=== PATIENT | male | born 1930 | race Caucasian/White ===

== ENCOUNTER 2017-11-17 14:50 | Inpatient (IN) | payer MEDICARE ==
[~2017-11-17] VITALS: Ht 170.2 cm; Wt 54.8 kg
[2017-11-17 15:35] LABS: Source, Urine Catheter
[2017-11-17 15:46] LABS: Hematocrit 28.9 % (37.0-53.0); Mean Corpuscular HGB 27.2 pg (26.0-34.0); Mean Corpuscular HGB Conc 31.1 g/dL (31.5-36.5); Mean Corpuscular Volume 87 fL (80-100); Platelet Count 305 K/mm3 (150-400); RDW Coefficient Variation 17.2 % (11.7-14.2); RDW Standard Deviation 54.2 fL (35.1-46.3); Red Blood Cell Count 3.31 M/mm3 (4.30-5.90); White Blood Cell Count 4.04 K/mm3 (4.00-11.30)
[2017-11-17 15:48] LABS: Appearance, Urine Hazy (Clear); Bilirubin, Urine Neg (Neg); Blood, Urine 2+ (Neg); Color, Urine Yellow (P-Yellow); Glucose Qualitative, Urine 3+ (Neg); Ketones, Urine 3+ (Neg); Leukocyte Esterase, Urine 3+ (Neg); Nitrite, Urine Neg (Neg); Protein, Urine 1+ (Neg); Urobilinogen, Urine NORM (Normal)
[2017-11-17] MEDS ORDERED: FINA5 PO (15:54)
[2017-11-17] MEDS ORDERED: HYDCOR20 PO (15:54)
[2017-11-17] MEDS ORDERED: LEVSOD50 PO (15:55)
[2017-11-17] MEDS ORDERED: TERA5 PO ×2 (15:55→23:11)
[2017-11-17] MEDS ORDERED: OMEPRAZOLE MAGN20 MG PO (15:55)
[2017-11-17] MEDS ORDERED: TRAZ50 PO (15:56)
[2017-11-17] MEDS ORDERED: TRIA15CR3 TOP (15:56)
[2017-11-17] MEDS ORDERED: TAMS.4ER PO (15:57)
[2017-11-17 16:00] LABS: International Normalized Ratio 1.02; Prothrombin Time Results 10.6 Sec (9.7-11.5)
[2017-11-17 16:08] LABS: Alanine Aminotransfer (ALT/SGP 14 U/L (12-78); Albumin, Blood 2.8 g/dL (3.4-5.0); Albumin/Globulin Ratio 0.9 (0.8-1.8); Alk Phos 132 U/L (50-136); Anion Gap 14 mmol/L (6-16); Aspartate Aminotrans (AST/SGOT 38 U/L (12-37); Bilirubin, Total 0.4 mg/dL (0.1-1.0); Blood Urea Nitrogen 6 mg/dL (8-24); Bun/Creatinine Ratio 13.7 (12.0-20.0); CO2, Blood 18 mmol/L (21-32); Calcium, Blood 7.4 mg/dL (8.5-10.1); Chloride, Blood 95 mmol/L (98-108); Creatinine, Blood 0.44 mg/dL (0.60-1.20); Ethanol (Alcohol), Blood, Med 129 mg/dL; Glomerular Filtration Rate >60 (60-); Glucose, Blood 117 mg/dL (70-99); Potassium, Blood 3.8 mmol/L (3.5-5.5); Sodium, Blood 127 mmol/L (136-145); Total Protein, Blood 5.8 g/dL (6.4-8.2)
[2017-11-17 16:12] LABS: White Blood Cells, Urine 50-100 /hpf (0-5)
[2017-11-17 16:13] LABS: Bacteria Mod /hpf; Squamous Epithelial Cells Rare /hpf (Few)
[2017-11-17 16:27] LABS: BASOPHILS ABSOLUTE MAN 0.04 K/mm3 (0.00-0.23); BASOPHILS PERCENT MAN 1 % (0-2); EOSINOPHILS ABSOLUTE MAN 0.12 K/mm3 (0.00-0.68); EOSINOPHILS PERCENT MAN 3 % (0-6); LYMPHOCYTES ABSOLUTE MAN 0.36 K/mm3 (0.84-5.20); LYMPHOCYTES PERCENT MAN 9 % (21-46); MONOCYTES ABSOLUTE MAN 0.12 K/mm3 (0.16-1.47); MONOCYTES PERCENT MAN 3 % (4-13); MYELOCYTE ABSOLUTE MAN 0.04 K/mm3 (0.00-0.00); MYELOCYTE PERCENT MAN 1 % (0-0); NEUTROPHILS ABSOLUTE MAN 3.35 K/mm3 (1.96-9.15); SEG NEUTROPHILS PERCENT MAN 83 % (41-73); TOTAL CELLS COUNTED 100
[2017-11-17] MEDS ORDERED: CALCIUM WITH V1 EACH PO (22:57)
[2017-11-17] MEDS ORDERED: ACET325 PO (22:57)
[2017-11-17] MEDS ORDERED: CYAN500 PO (22:58)
[2017-11-17] MEDS ORDERED: FERROUS SULFATE PO (23:00)
[2017-11-17] MEDS ORDERED: Hair, Skin & N1 EACH PO (23:00)
[2017-11-17] MEDS ORDERED: IBUP400 PO (23:00)
[2017-11-17] MEDS ORDERED: Vitamin B Comple1 EA PO (23:01)
[2017-11-17] MEDS ORDERED: SENN187 PO (23:01)
[2017-11-17] MEDS ORDERED: ERYT1OIN RIGHTEYE (23:09)
[2017-11-18 06:30] LABS: BASOPHILS ABSOLUTE AUTO 0.02 K/mm3 (0.00-0.23); BASOPHILS PERCENT AUTO 0 % (0-2); EOSINOPHILS ABSOLUTE AUTO 0.36 K/mm3 (0.00-0.68); EOSINOPHILS PERCENT AUTO 7 % (0-6); Hematocrit 29.4 % (37.0-53.0); Hemoglobin 9.5 g/dL (13.5-17.5); IMMATURE GRAN ABSOLUTE AUTO 0.02 K/mm3 (0.00-0.10); IMMATURE GRAN PERCENT AUTO 0 % (0-1); LYMPHOCYTES ABSOLUTE AUTO 0.39 K/mm3 (0.84-5.20); LYMPHOCYTES PERCENT AUTO 7 % (21-46); MONOCYTES ABSOLUTE AUTO 0.47 K/mm3 (0.16-1.47); MONOCYTES PERCENT AUTO 9 % (4-13); Mean Corpuscular HGB 27.4 pg (26.0-34.0); Mean Corpuscular HGB Conc 32.3 g/dL (31.5-36.5); Mean Corpuscular Volume 85 fL (80-100); Mean Platelet Volume 9.1 fL (9.1-12.4); NEUTROPHILS PERCENT AUTO 77 % (41-73); Platelet Count 357 K/mm3 (150-400); RDW Standard Deviation 51.6 fL (35.1-46.3); Red Blood Cell Count 3.47 M/mm3 (4.30-5.90); White Blood Cell Count 5.46 K/mm3 (4.00-11.30)
[2017-11-18 06:58] LABS: Anion Gap 11 mmol/L (6-16); Blood Urea Nitrogen 4 mg/dL (8-24); Bun/Creatinine Ratio 10.1 (12.0-20.0); CO2, Blood 23 mmol/L (21-32); Calcium, Blood 7.3 mg/dL (8.5-10.1); Chloride, Blood 94 mmol/L (98-108); Glomerular Filtration Rate >60 (60-); Glucose, Blood 74 mg/dL (70-99); Potassium, Blood 3.6 mmol/L (3.5-5.5); Sodium, Blood 128 mmol/L (136-145)
[2017-11-18 07:01] LABS: Thyroid Stimulating Hormone 0.206 uIU/mL (0.360-4.800)
[2017-11-18 07:06] LABS: Percent Saturation 15.5 % (20.0-50.0)
[2017-11-19 05:32] LABS: Hematocrit 28.1 % (37.0-53.0); Mean Corpuscular HGB 27.2 pg (26.0-34.0); Mean Corpuscular Volume 85 fL (80-100); Mean Platelet Volume 8.5 fL (9.1-12.4); Platelet Count 313 K/mm3 (150-400); RDW Coefficient Variation 17.1 % (11.7-14.2); RDW Standard Deviation 52.7 fL (35.1-46.3); Red Blood Cell Count 3.31 M/mm3 (4.30-5.90); White Blood Cell Count 4.61 K/mm3 (4.00-11.30)
[2017-11-19 05:56] LABS: Anion Gap 8 mmol/L (6-16); Blood Urea Nitrogen 3 mg/dL (8-24); Bun/Creatinine Ratio 6.1 (12.0-20.0); CO2, Blood 24 mmol/L (21-32); Calcium, Blood 7.9 mg/dL (8.5-10.1); Chloride, Blood 95 mmol/L (98-108); Glomerular Filtration Rate >60 (60-); Glucose, Blood 101 mg/dL (70-99); Potassium, Blood 3.7 mmol/L (3.5-5.5); Sodium, Blood 127 mmol/L (136-145)
[2017-11-20 05:46] LABS: Hematocrit 30.2 % (37.0-53.0); Hemoglobin 9.6 g/dL (13.5-17.5); Mean Corpuscular HGB 27.2 pg (26.0-34.0); Mean Corpuscular HGB Conc 31.8 g/dL (31.5-36.5); Mean Corpuscular Volume 86 fL (80-100); Mean Platelet Volume 9.2 fL (9.1-12.4); Platelet Count 340 K/mm3 (150-400); RDW Coefficient Variation 17.6 % (11.7-14.2); RDW Standard Deviation 53.9 fL (35.1-46.3); Red Blood Cell Count 3.53 M/mm3 (4.30-5.90); White Blood Cell Count 3.75 K/mm3 (4.00-11.30)
[2017-11-20 06:03] LABS: Anion Gap 6 mmol/L (6-16); Blood Urea Nitrogen 5 mg/dL (8-24); Bun/Creatinine Ratio 9.4 (12.0-20.0); CO2, Blood 27 mmol/L (21-32); Calcium, Blood 8.2 mg/dL (8.5-10.1); Chloride, Blood 98 mmol/L (98-108); Creatinine, Blood 0.53 mg/dL (0.60-1.20); Glomerular Filtration Rate >60 (60-); Glucose, Blood 76 mg/dL (70-99); Sodium, Blood 131 mmol/L (136-145)
[2017-11-21 05:58] LABS: Anion Gap 7 mmol/L (6-16); Blood Urea Nitrogen 7 mg/dL (8-24); Bun/Creatinine Ratio 12.1 (12.0-20.0); CO2, Blood 25 mmol/L (21-32); Calcium, Blood 8.3 mg/dL (8.5-10.1); Chloride, Blood 97 mmol/L (98-108); Creatinine, Blood 0.58 mg/dL (0.60-1.20); Glomerular Filtration Rate >60 (60-); Glucose, Blood 76 mg/dL (70-99); Sodium, Blood 129 mmol/L (136-145)
[2017-11-21 06:17] LABS: Beta-hydroxybutyrate 1.6 mg/dL (0.2-2.8)
[2017-11-22 07:14] LABS: C-PEPTIDE, SERUM 0.6 ng/mL (1.1-4.4)
[2017-11-22] MEDS ORDERED: CIPR250 PO (14:48)
[2017-11-25 01:09] LABS: FREE INSULIN <1.0 uU/mL (.); TOTAL INSULIN <1.0 uU/mL (.)
== END 2017-11-22 15:53 | disposition home health service (06) | DRG 698 ==
LOC: ER 14:50 → MEDS 17:37
PROVIDERS: Internal Medicine; Nurse Practitioner Family
DX: T83.518A Infection and inflammatory reaction due to other urinary catheter, initial encounter (principal); A41.51 Sepsis due to Escherichia coli [E. coli]; G92 Toxic encephalopathy; A41.81 Sepsis due to Enterococcus; R65.20 Severe sepsis without septic shock; E87.1 Hypo-osmolality and hyponatremia; N39.0 Urinary tract infection, site not specified; E27.40 Unspecified adrenocortical insufficiency; R00.1 Bradycardia, unspecified; I67.9 Cerebrovascular disease, unspecified; E16.2 Hypoglycemia, unspecified; C44.310 Basal cell carcinoma of skin of unspecified parts of face; Z85.01 Personal history of malignant neoplasm of esophagus; K21.9 Gastro-esophageal reflux disease without esophagitis; N40.1 Benign prostatic hyperplasia with lower urinary tract symptoms; R33.8 Other retention of urine; Z98.890 Other specified postprocedural states; E03.9 Hypothyroidism, unspecified; Z79.899 Other long term (current) drug therapy; Y84.8 Other medical procedures as the cause of abnormal reaction of the patient, or of later complication, without mention of misadventure at the time of the procedure
CPT/HCPCS: 36415; 70450; 71046; 80048; 80053; 81001; 82010; 82728; 82947; 83525; 83527; 83540; 83550; 83605; 84145; 84443; 84681; 85025; 85027; 85610; 87040; 87077; 87086; 87186; 93005; 93010; 96361; 96365; 96375; 99285; G0480; J0696; J1956; J7030; J7042; J7120

== ENCOUNTER → 2018-06-11 | Outpatient (CLI) | payer MEDICARE ==
[~2018-06-11] MED LIST: ACET325 PO; CALCIUM WITH V1 EACH PO; CIPR250 PO; CYAN500 PO; ERYT1OIN RIGHTEYE; FERROUS SULFATE PO; FINA5 PO; HYDCOR20 PO; Hair, Skin & N1 EACH PO; IBUP400 PO; LEVSOD50 PO; OMEPRAZOLE MAGN20 MG PO; SENN187 PO; TAMS.4ER PO; TERA5 PO; TRAZ50 PO; TRIA15CR3 TOP; Vitamin B Comple1 EA PO
== END | disposition home or self-care (01) ==
LOC: LAB SHORT 13:00 → LAB 13:00
DX: L08.9 Local infection of the skin and subcutaneous tissue, unspecified (principal); L89.153 Pressure ulcer of sacral region, stage 3
CPT/HCPCS: 87070; 87075; 87205

== ENCOUNTER 2018-11-20 14:32 | Observation (INO) | payer MEDICARE ==
[~2018-11-20] VITALS: Ht 170.2 cm; Wt 45.4 kg
[2018-11-20 15:18] LABS: BASOPHILS ABSOLUTE AUTO 0.05 K/mm3 (0.00-0.23); BASOPHILS PERCENT AUTO 0 % (0-2); EOSINOPHILS ABSOLUTE AUTO 1.44 K/mm3 (0.00-0.68); EOSINOPHILS PERCENT AUTO 13 % (0-6); Hematocrit 42.4 % (37.0-53.0); Hemoglobin 13.1 g/dL (13.5-17.5); IMMATURE GRAN ABSOLUTE AUTO 0.05 K/mm3 (0.00-0.10); IMMATURE GRAN PERCENT AUTO 0 % (0-1); LYMPHOCYTES ABSOLUTE AUTO 0.68 K/mm3 (0.84-5.20); LYMPHOCYTES PERCENT AUTO 6 % (21-46); MONOCYTES ABSOLUTE AUTO 0.77 K/mm3 (0.16-1.47); MONOCYTES PERCENT AUTO 7 % (4-13); Mean Corpuscular HGB 31.6 pg (26.0-34.0); Mean Corpuscular HGB Conc 30.9 g/dL (31.5-36.5); Mean Corpuscular Volume 102 fL (80-100); NEUTROPHILS ABSOLUTE AUTO 8.36 K/mm3 (1.96-9.15); NEUTROPHILS PERCENT AUTO 74 % (41-73); Platelet Count 277 K/mm3 (150-400); RDW Coefficient Variation 15.1 % (11.7-14.2); Red Blood Cell Count 4.15 M/mm3 (4.30-5.90); White Blood Cell Count 11.35 K/mm3 (4.00-11.30)
[2018-11-20 15:49] LABS: Alanine Aminotransfer (ALT/SGP 12 U/L (12-78); Albumin, Blood 3.1 g/dL (3.4-5.0); Alk Phos 81 U/L (50-136); Anion Gap 10 mmol/L (6-16); Aspartate Aminotrans (AST/SGOT 22 U/L (12-37); Bilirubin, Total 1.1 mg/dL (0.1-1.0); Blood Urea Nitrogen 29 mg/dL (8-24); Bun/Creatinine Ratio 25.2 (12.0-20.0); CO2, Blood 25 mmol/L (21-32); Calcium, Blood 8.2 mg/dL (8.5-10.1); Chloride, Blood 109 mmol/L (98-108); Creatinine, Blood 1.15 mg/dL (0.60-1.20); Glomerular Filtration Rate >60 (60-); Glucose, Blood 19 mg/dL (70-99); Potassium, Blood 3.9 mmol/L (3.5-5.5); Sodium, Blood 144 mmol/L (136-145); Total Protein, Blood 6.1 g/dL (6.4-8.2)
--- NOTE | 2018-11-20 17:11 | NUR ---
PT ADMITTED PT ADMITTED AT 1700. PT APPEARS COMFORTABLE. WILL CONTINUE TO MONITOR.
--- NOTE | 2018-11-20 17:31 | NUR ---
NEXT OF KIN NOTIFIED THIS RN NOTIFIED NEXT OF KIN, TRINH ABOUT PT HOPITALIZATION & CONDITION. TRINH STATED SHE IS CURRENTLY IN [place] & WILL CALL FOR UPDATES. [facility] & THIS RN REQUESTED TO HAVE A FACE SHEET & ADVANCED DIRECTED SENT OVER TO [facility].
--- NOTE | 2018-11-20 18:52 | NUR ---
Spoke to Dr. Cheng and to Dr. Sparks regarding this patient. Dr. Sparks will admit for comfort care, IV fluids will be stopped. Pt appears to be comfortable at this time. Notes indicate that NOK was notified of admission. Palliative to follow comfort pt.
--- NOTE | 2018-11-20 21:58 | NUR ---
11/20/182199 ORAL CARE GIVEN AND SUCTIONED SECRETIONS. REPOSITIONED TO LEFT SIDE WITH PILLOWS. COMFORTABLE FOR NOW. RESP 22.
--- NOTE | 2018-11-21 03:55 | NUR ---
11/21/18 0400 SLEEPING COMFORTABLY. RESP. EQUAL AND UNLABORED AT 20. ORAL CARE GIVEN WITH SUCTION SWAB KIT. PT BITES DOWN AND UNABLE TO CLEAN ALL OF MOUTH AND TEETH. REPOSITIONED TO OTHER SIDE. CALHOUN PATENT WITH SMALL AMT YELLOW URINE.
--- NOTE | 2018-11-21 07:21 | NUR ---
11/21/18 0600 RESP. AT 24,UNLABORED. HR= 84, REGULAR. ORAL AND DEBRA-CARE GIVEN. FIANCEE/FRIEND, TRINH WILL BE DRIVING DOWN THIS AM WITH HER DAUGHTER TO VISIT WITH PT. REFER TO COMFORT CARE SECTION. SILVA ALEMAN BM THIS SHIFT.
--- NOTE | 2018-11-21 12:59 | NUR ---
Spiritual care visit conducted. Patient is lying in bed and patient's RN tells me he is actively dying. Patient is non responsive. I tell patient who I am and what department I am from. I tell patient that I do not know what spiritual background that he has but I will say a prayer for him. Patient does not respond to questions or statements. I provide a generic prayer hoping that what I pray fit the topics on his mind and fit a belief system the patient ascribes to. Patient shows no change in facial expression. I will continue to remain available to patient and family.
--- NOTE | 2018-11-22 03:52 | NUR ---
SHIFT SUMMARY: PT IS MOSTLY UNRESPONSIVE. FAMILY AT THE BEDSIDE DURING SHIFT CHANGE. PT TURNED Q2H. CALHOUN PATENT AND DRAINING YELLOW URINE. PT KEPT ON BEDREST AND COMFORT MEASURES ORDERED. PT SHOWS NO S/S FOR PAIN, NAUSEA, VOMITING, OR SOB. NO ACUTE CHANGES OR COMPLICATIONS THIS SHIFT. WILL REPORT TO DAY NURSE AND CONTINUE TO MONITOR.
--- NOTE | 2018-11-22 07:43 | NUR ---
REPOSITIONED & CHECKED ATTENDS-DRY. UNIQUE OH PATENT DRNAHOMY DRK YELLOW URINE. PT STARES, DOES NOT MAKE EYE CONTACT OR REPOND WHEN SPOKEN TO. NO S/S PAIN. HE APPEARS GAUNT/FRAIL, FATIGUED, VERY LETHARGIC. SKIN SOMEWHAT CLAMMY. COOL WASH TOWEL TO FACE. WILL CONTINUE TO MX & PROVIDE COMFORT CARE.
--- NOTE | 2018-11-22 10:22 | NUR ---
complete bedbath & attends change. pt incont of stool. he continues nonresponsive with eyes open. no s/s pain. repositioned for comfort. no family in room @ this time respirations are becoming shallow, 20-24/min, non labored. will continue to mx & provide comfort care.
--- NOTE | 2018-11-22 10:31 | NUR ---
CLEANED ROOM, GAVE PATIENT SPONGE BATH, AND LINEN CHANGE.
--- NOTE | 2018-11-22 13:14 | NUR ---
spoke with Evy the daughter of pt's s/o & updated on pt's condition @ this time.
--- NOTE | 2018-11-22 15:33 | NUR ---
PT'S S/O TRINH & FRIEND LANEY IN TO VISIT, ATTEMPT TO COMMUNICATE WITH PT HOWEVER PT NONRESPONSIVE. THEY STATE HE HAD CAR KEYS & POSSIBLY LR[facility] AMOUNT OF MATTHEWS IN POCKETS ($2000) WHEN BROUGHT TO HOSP BY EMS. NO RECEIPTS FOR VALUABLES ON CHART. NO PERSONAL BELONGINGS IN ROOM. BUSINESS SYSTEMS ADVISOR REPORT TO PT ADVOCATE WHO WILL INVESTIGATE.
--- NOTE | 2018-11-22 17:17 | NUR ---
PT OCCASIONALLY WIGGLES FEET, OCCASIONALLY GASPS/MOANS. MINOR SYMPTOMS OF DISCOMFORT. ROXANOL 5MG GIVEN X 2 TODAY. FAMILY STATED HE APPEAR COMFORTABLE WHILE THEY WERE IN ROOM. PASTORAL CARE SAT WITH PT TODAY PROVIDING COMFORT TO PT & VISITORS. ORAL CARE PROVIDED INTERMITTANTLY T/O DAY. COMFORT CARE CONTINUES. PT CONTINUES NONRESPONSIVE WITH SHALLOW UNLABORED RESPIRATIONS.
--- NOTE | 2018-11-22 17:48 | NUR ---
Per RN request, I sat with Mr. Laurent who appeared very close to end-of-life. He was alone in room and non-responsive. Held his hand and spoke softly to him. Told him he was deeply loved and thanked him for his contribution to the world. Breaths very shallow, hands and feet mottled. He did not respond to me but would wiggle his foot randomly. He did not appear to be in pain or distress thanks to excellent nursing care. His "fiance" Charlene arrived with a friend. They placed a hearing device on Julio's ears and began speaking to him loudly into a speaker. They began to ask Julio about his finances as they needed to pay for his cremation and burial. I tried to gently explain to them that Julio was non-responsive and very close to end-of-life. I suggested that maybe they could focus on speaking to him about happy memories and their love for him. They were politely dismissive of this suggestion. I was called away at this point, but will remain available.
--- NOTE | 2018-11-22 18:09 | NUR ---
CALHOUN OUTPUT 150ML
--- NOTE | 2018-11-22 19:39 | NUR ---
PT RESTING COMFORTABLY, NO S/S OF PAIN OR DISCOMFORT. ORAL CARE PERFORMED, APPLIED LOTION TO ARMS. RR IS 22. PT NON-VERBAL, HOWEVER DOES BITE DOWN ON TOOTHETE WHEN PERFORMING ORAL CARE & OCCASIONALLY WIGGLES TOES. PT COOL TO TOUCH, BLANKET PROVIDED. WILL CONTINUE TO MONITOR PT.
--- NOTE | 2018-11-23 01:16 | NUR ---
CHANGE IN RESPIRATIONS PT HAVING NICK STOKE RESPIRATIONS W/6-10 SEC PERIODS OF APNEA. CHECKED & REPOSITIONED, RESTING COMFORTABLY. WILL CONTINUE TO MONITOR.
--- NOTE | 2018-11-23 06:42 | NUR ---
SHIFT SUMMARY NO S/S OF PAIN/DISCOMFORT, NAUSEA OR INCREASED BODY TEMP THIS SHIFT. PT APPEARS COMFORTABLE, TURNED & REPOSITIONED Q2H PRN. CALHOUN IS PATENT & DRAINING ODOROUS DARK ORANGE URINE, HAD 150ML OUTPUT. RR IS AROUND 12/MIN W/OCCASIONAL PERIODS OF APNEA THROUGH THE NIGHT. ORAL CARE PERFORMED & CALL LIGHT IN REACH. WILL CONTINUE TO MONITOR PT.
--- NOTE | 2018-11-23 06:46 | NUR ---
PHONE CALL FROM [facility] AT 0640 I RECIEVED PHONE CALL FROM [facility], HER NAME IS SUHAIL WATERMAN. SHE IS A FRIEND THAT LIVES IN [facility], STATES SHE BELIEVES PT POSSIBLY WANTED TO BE CREMATED & WAS GOING TO LOOK INTO IT & CALL TRINH HIS FIANCE. ASKED US TO CALL IF ANYTHING HAPPENS TO PT, NUMBER IS [phone].
--- NOTE | 2018-11-23 07:57 | NUR ---
COMFORT CARE CONTINUES. PT IS NONRESPONSIVE, EYES PARTIALLY OPEN. BREATHING SHALLOW, R/R APPROX 16/MIN, NONLABORED @ THIS TIME. NO S/S PAIN. CALHOUN CATH PATENT JOSE ANTONIO OWUSU YELLOW URINE. ATTENDS CDI. PT POSITIONED FOR COMFORT. VISITOR IN [place] TO SEE PT, GIVEN UPDATE.
--- NOTE | 2018-11-23 09:22 | NUR ---
PRN ROXANOL 5MG GIVEN FOR COMFORT/PAIN RELIEF, FACE SCALE 4. DR SALAS IN TO SEE PT. RESP INCREASINGLY SHALLOW, 16-20/MIN W OCCASIONAL PAUSES.
--- NOTE | 2018-11-23 12:51 | NUR ---
ORAL CARE PROVIDED. PT CONTINUES NONRESPONSIVE, STIFF/RIGID. RESP VERY SHALLOW, APPROX 16.
--- NOTE | 2018-11-23 14:17 | NUR ---
NO S/S PAIN. PT BREATHS INCREASINGLY SHALLOW, NO S/S OF AIR HUNGER. HE APPEARS PEACEFUL. COMFORT CARE CONTINUES
--- NOTE | 2018-11-23 17:12 | NUR ---
NONRESPONSIVE HOWEVER @ X'S WIGGLES FEET OR MOVES HEAD SLIGHTLY. RESP CONTINUE SHALLOW W PAUSES @ X'S. NO S/S PAIN OR AIR HUNGER WILL CONTINUE TO MX
--- NOTE | 2018-11-23 18:20 | NUR ---
250 DRK JEFF FOUL URINE OUTPUT VIA CALHOUN CATH
--- NOTE | 2018-11-24 00:11 | NUR ---
APPEARS COMFORTABLE, NO S/S DISCOMFORT
--- NOTE | 2018-11-24 00:32 | NUR ---
RESP ARE SHALLOW, EVEN, AND UNLABORED. PT APPEARS COMFORTABLE.
--- NOTE | 2018-11-24 05:53 | NUR ---
NOC SHIFT SUMMARY PT IS ON COMFORT CARE. HAS BEEN REPOSITIONED THROUGHOUT THE NIGHT. HE IS NON RESPONSIVE TO CARE BUT DOES CONTINUE TO BREATH SHALLOWLY AND HAS A REGULAR HEARTBEAT. CURRENTLY APPEARS COMFORTABLE. WILL CONTINUE TO MONITOR.
--- NOTE | 2018-11-24 07:41 | NUR ---
VERY SHALLOW BREATHING. WCTM.
--- NOTE | 2018-11-24 11:19 | NUR ---
Palliative Care comfort care assessment. Case conferenced with RN. Pt lying supine in bed with eyes open but unresponsive. He has shallow unlabored respirations. He has approx 300 ml dk urine in urbina drainage bag. RN had just repositioned him. No nonverbal indicators noted of distress or pain. No family or visitors present. Will visit daily and remain available to assist with s/s management and EOL care prn.
--- NOTE | 2018-11-24 17:10 | NUR ---
COMFORT CARE. TURNED Q 2 HOURS. DARK URINE IN CALHOUN BAG. EYES HALF CLOSED WITH VERY SHALLOW BREATHING. FINGERTIPS AND TOES COOL BUT NOT COLD. NO OBVIOUS MOTTLING. WCTM.
--- NOTE | 2018-11-25 01:14 | NUR ---
SHIFT CHANGE, PT APPEARS COMFORTABLE
--- NOTE | 2018-11-25 01:15 | NUR ---
PT UNRESPONSIVE, NO S/S DISCOMFORT
--- NOTE | 2018-11-25 01:16 | NUR ---
PT BREATHING SHALLOWLY, NO S/S DISCOMFORT.
--- NOTE | 2018-11-25 02:50 | NUR ---
REPOSITIONED, UNRESPONSIVE, NO S/S DISCOMFORT.
--- NOTE | 2018-11-25 05:16 | NUR ---
NOC SHIFT SUMMARY COMFORT CARE TURNED [id number] PRN. PT DOES NOT RESPOND TO REPOSITIONING. CONTINUES TO HAVE REGULAR HEARTBEAT AND SHALLOW BREATHING. NO S/S OF PAIN/DISCOMFORT NOTED. WILL CONTINUE TO MONITOR.
--- NOTE | 2018-11-25 09:37 | NUR ---
Palliative Care comfort care assessment. Pt remains unresponsive with eyes open, supine on back w/hob elevated. He appears extremely dry. He does not appear comfortable or restful but no specific distress noted. Raspy shallow respirations noted. RN had spoken to SO, who indicated she would not be in to visit. Discussed meds per eMAR with RN and pt's s/s. Will cont to monitor.
--- NOTE | 2018-11-25 18:05 | NUR ---
TURNED Q 2 HOURS. VERY SHALLOW BREATHING. CALHOUN WITH SMALL AMOUNT DARK URINE. APPEARS COMFORTABLE. IV PATENT. WCTM.
--- NOTE | 2018-11-25 21:16 | NUR ---
RESP SHALLOW, EYE DROPS APPLIED. NO VISIBLE SYMPTOMS OF DISCOMFORT.
--- NOTE | 2018-11-26 06:51 | NUR ---
NOT SHIFT SUMMARY NO ACUTE CHAGES IN PT NOTED THIS NIGHT. HE CONTINUES TO BE UNRESPONSIVE TO STIMULI OR POSITION CHANGES. REPOSITIONED THROUGHOUT THE NIGHT. REPORT TO ONCOMING RN.
--- NOTE | 2018-11-26 07:59 | NUR ---
TURNED TO HIS L SIDE. UNRESPONSIVE WITH MOVEMENT, ASSESSMENT, VERBALIZATION, AND EYE DROP ADMINISTRATION. RESPIRATIONS ARE REGULAR AND UNLABORED AT 22/MIN. SCANT URINE IN CALHOUN TUBING. L ARM AND HAND ELEVATED ON 1 PILLOW D/T SWELLING.
--- NOTE | 2018-11-26 11:14 | NUR ---
COMFORT CARE PAL CARE ASSESSMENT Pt in left side lying position with hob elevated. He has shallow, barely perceptable respirations of 18-22/min. Eyes remain open but look less dry and irritated than yesterday. Scant amt of dk urine noted in urbina drainage bag from past 4+ hours. Overall, pt appears more relaxed and comfortable than previous two days. Pt was medicated once per shift with either ativan or roxanol per eMar and I believe this has been helpful. Discussed current medications and plan for use of Roxanol 1-2x per shift as needed with RN. Family has called to check on pt but will not be returning. Some time spent just sitting with pt, hand on arm. If we have a volunteer today I will ask them to sit with Cosme also.
--- NOTE | 2018-11-26 12:41 | NUR ---
RESP REGULAR AT 20/MIN. HE LOOKS COMFORTABLE. PALLIATIVE NURSE ROUNDED. MARIA ISABEL'S GIRLFRIEND CALLED TO CHECK ON HIS STATUS.
--- NOTE | 2018-11-26 12:43 | NUR ---
PREVIOUS NOTE WAS A 10 AM NOTE. NOW 12 NOON NOTE NO CHANGE EXCEPT RESPIRATIONS 18/MIN. THEY ARE STILL REGULAR. CALHOUN OUTPUT STILL SCANT. HE HAS BEEN REPOSITIONED X2 SO FAR THIS SHIFT. HE APPEARS COMFORTABLE.
--- NOTE | 2018-11-26 14:09 | NUR ---
Mr. Laurent appears comfortable. He is not responsive to voice or touch. Breaths are even, and he is warm to the touch. No family/friends present. I sat with his for awhile providing presence and prayer. I will remain available.
--- NOTE | 2018-11-26 14:24 | NUR ---
HE HAS BEEN TURNED AGAIN. NO RESPONSE EXCEPT HE MOVED ONE FOOT A LITTLE. NO BM. VERY SMALL AMT OF DARK JEFF URINE DRAINING IN CALHOUN TUBING. EYE DROPS CONTINUE QID. RESPIRATIONS ARE STILL 18/MIN. ORAL CARE DONE EARLIER TODAY.
--- NOTE | 2018-11-26 16:16 | NUR ---
HE LOOKS VERY COMFORTABLE BACK ON HIS R SIDE AGAIN. RESPIRATIONS 18/MIN.
--- NOTE | 2018-11-26 18:03 | NUR ---
HIS RESPIRATIONS HAVE BEEN REGULAR T/O THE DAY. HE REMAINS UNRESPONSIVE. HE LOOKS VERY COMFORTABLE. NO PRN'S GIVEN BUT TURNED Q 2 TO 3 HRS. NO BM AND VERY LITTLE OUTPUT. HIS NEIGHBOR, A YOUNG WOMAN VISITED AND COMMUNICATED WITH SUHAIL IN [place]. SHE IS SUPPOSE TO BE HIS POA.
--- NOTE | 2018-11-26 19:50 | NUR ---
PT NONRESPONSIVE AT THIS TIME. HE APPEARS TO BE RESTING COMFORTABLY W/O S/S PAIN OR DISTRESS. RESPS E/U, NO SECRTIONS NOTED AND CALHOUN PATENT/DRAINING SCANT OUTPUT. TURN SCHEDULE BEING MAINTAINED AND WILL PROVIDE PRN MEDS REQUIRED. WCTM AND PROVIDE COMFORT MEASURES RX'D.
--- NOTE | 2018-11-27 05:59 | NUR ---
SUMMARY: PT CONT'S ON COMFORT CARE, IS NONRESPONSIVE AND DOESN'T ROUSE TO STIMULUS. SCHEDULED EYE GTTS RECIEVED PER EMAR TO PREVENT THEM FROM DRYING OUT D/T EYES NOT SHUTTING ENTIRELY. TURN SCHEDULE MAINTAINED AND CALHOUN PATENT/ DRAINING, SCANT AMT OF CONCENTRATED URINE OBSERVED. HE APPEARS COMFORTABLE AND W/O ANY PAIN OR S/S DISTRESS, ORAL SECRETIONS ABSENT. RESPS ARE SHALLOW BUT UNLABORED. NO ACUTE CHANGES. WCTM AND REPORT TO DAY RN.
--- NOTE | 2018-11-27 08:50 | NUR ---
HE HAS REGULAR SHALLOW RESPIRATIONS AT 24/MIN. HE IS ON HIS BACK WITH HEAD SLIGHTLY ELEVATED. HE LOOKS COMFORTABLE. HE REMAINS UNRESPONSIVE.
--- NOTE | 2018-11-27 08:52 | NUR ---
Palliative care comfort care visit made. Pt with prolonged apnic spells with very shallow breathing noted, approx 6-8 breaths/min. Pt with eyes open but staring straight ahead with no focus. Scant <30 ml dk lilly urine noted in urbina drainage bag. Pt appears comfortable with no nonverbal indicators of of pain or distress noted. Case conferenced with RN also. No family/visitors in the past 5 days. Pt appears immenent.
--- NOTE | 2018-11-27 10:01 | NUR ---
HE HAD A TOTAL BEDBATH AND WAS TURNED. NO BM. FOAM DRESSINGS NOTED THAT WERE PUT ON EARLY THIS MORNING. NO RESPONSE TO ANY OF THE CARE. SCANT AMT OF URINE IN THE CALHOUN BAG. ROXANOL WAS GIVEN FOR COMFORT TO GO ALONG WITH ALL THE CARE. HE IS ON HIS L SIDE NOW. RESPIRATIONS ARE THE SAME, 24/MIN.
--- NOTE | 2018-11-27 13:44 | NUR ---
1200 NOTE HE IS RESTING VERY COMFORTABLY WITH RESPIRATIONS AT 16/MIN.
--- NOTE | 2018-11-27 13:45 | NUR ---
NO CHANGES. HE IS COMFORTABLE WITH REGULAR RESPIRATIONS AT 16/MIN. NO VISITORS TODAY.
--- NOTE | 2018-11-27 14:39 | NUR ---
RN reports was just in playing music for pt. Pt in left sidelying position with hob elevated. I am not noting the apnic spells that I did early this am. Resp even and approx 18/min. Pt had bed bath earlier and has been repositioned with no nonverbal painful behaviours noted with repositioning. Pt appears comfortable and well cared.
--- NOTE | 2018-11-27 14:56 | NUR ---
Spiritual care visit conducted. Patient is actively dying, I provided therapeutic guitar music, prayer and a calming presence. Patient showed no response.
--- NOTE | 2018-11-27 16:49 | NUR ---
1555 NOTE CHAPLAIN MOTA PLAYED THE GUITAR FOR MARIA ISABEL FOR ABOUT AN HOUR. NO CHANGE IN MARIA ISABEL. HE APPEARS COMFORTABLE. BREATHING IS ALWAYS VERY QUIET.
--- NOTE | 2018-11-27 16:50 | NUR ---
TURNED TO HIS RIGHT SIDE. NO CHANGE IN HIS RESPIRATIONS BEFORE OR AFTER THE TURN. THEY REMAIN 16/MIN.
--- NOTE | 2018-11-27 17:48 | NUR ---
Provided loving presence to Julio. No family/friends present. His breaths are extremely shallow. He appears well cared-for by excellent nursing care and attention. No signs of pain or distress. Held Julio's hand and stroked his forehead. I will remain available to pt and family.
--- NOTE | 2018-11-27 17:56 | NUR ---
NO CHANGES. VERY COMFORTABLE WITH EVEN RESPIRATIONS AT 16/MIN.
--- NOTE | 2018-11-28 09:18 | NUR ---
Pt visit this AM. Pt is resting in bed with his eyes opened and is non responsive. Pt appears imminent but comfortable. No signs of distress at this time. Offered gentle soothing voice. Spoke with Pt's bedside nurse Jasmyn and she reports no concerns. Discussion was made regarding imminent condition but appearing comfortable. Palliative Care will remain available.
--- NOTE | 2018-11-28 14:34 | NUR ---
Spiritual care visit conducted. Patient is unresponsive and continues to deteriorate. I provided soft (not too soft because patient is hard of hearing) therapeutic guitar music and prayer (loudly in his ear). I will continue to be available to patient and family.
--- NOTE | 2018-11-28 16:59 | NUR ---
PT RESTING APPEARS IN NO ACUTE DISTRESS. POSITIONED OFF BONY PROMINENCES. EYE GTT GIVEN PATIENT IS NO LONGER BLINKING. RR 14 AND SHALLOW.
--- NOTE | 2018-11-28 18:14 | NUR ---
Several visits today. Each time, Mr. Laurent appeared to be very near . Breaths very shallow. Sat with him providing presence of love and comfort through touch. Assured him it was time to go "home." I will remain available.
--- NOTE | 2018-11-28 20:41 | NUR ---
COMFORT CARE. PATIENT EYE DROPS GIVEN PER EMAR. RESPIRATIONS SHALLOW 8-12.
--- NOTE | 2018-11-29 05:01 | NUR ---
SHIFT SUMMARY PATIENT IS COMFORT CARE. NONVERBAL AND NON RESPONSIVE. PATIENT NO LONGER BLINKING EYES. EYE DROPS PER EMAR. NO S/SX OF DISTRESS. SHALLOW RESPIRATIONS. PIV REMAINS INTACT. NPO AND CALHOUN PATENT AND DRAINING. Q2 TURNS. CALL LIGHT IN REACH. BED IN LOWEST POSITION. WILL CONTINUE TO MONITOR UNTIL DAY SHIFT NURSE ASSUMES CARE.
--- NOTE | 2018-11-29 11:14 | NUR ---
Pt visit this AM. Pt is resting in bed with his eyes opened. Pt is non responsive and appears comfortable with no signs of distress. Offered gentle voice and reasured Pt it was ok to go. Attempted to contact NOK listed with no success. Voicemail box is full and unable to leave a voice message. Spoke with Pt's bedside nurse Rosanne and she reports no concerns at this time. Palliative Care will remain available.
--- NOTE | 2018-11-29 15:49 | NUR ---
Spiritual care visit conducted. Patient has been regularly turned and is in a different position everytime I entered the room. I provided inspirational Bible quotes, therapeutic guitar music and prayer. Patient is unresponsive except for a repositioning of his leg or a hard swallow. I will continue to be available to patient and family.
--- NOTE | 2018-11-29 17:25 | NUR ---
RR VERY SHALLOW 8-10 PER MINUTE. REPOSITIONED OFF BONY PROMINENCES. DOES NOT BLINK EYE GTT'S GIVEN PER EMAR.
--- NOTE | 2018-11-29 17:41 | NUR ---
SHIFT SUMMARY COMFORT CARE; EYE GTT'S GIVEN PER EMAR. REPOSITION Q2. RR 8-10 AND SHALLOW. IMMENENT.
--- NOTE | 2018-11-30 04:14 | NUR ---
SHIFT SUMMARY PATIENT IS ON COMFORT CARE. NON-VERBAL, NON-RESPONSIVE AND NPO. NON BLINKING OPEN EYES. EYE DROPS SCHEDULE PER EMAR. CALHOUN PATENT AND DRAINING. TURN Q2. PIV REMAINS INTACT. NO S/SX OF DISTRESS. BED IN LOWEST POSITION. WILL CONTINUE TO MONITOR UNTIL DAY SHIFT NURSE ASSUMES CARE.
--- NOTE | 2018-11-30 11:29 | NUR ---
Spiritual care visit conducted. Patient is non responsive but I continue to visit, providing a calming presence, scripture reading and prayer.
--- NOTE | 2018-11-30 18:20 | NUR ---
SHIFT SUMMARY STILL AWAITING PASSING OF THE PATIENT. GAVE ONE DOSE OF ROXANOL TODAY AND PATIENT HAS BEEN LESS RESTLESS AND BREATHING BETTER THAN EARLIER. WILL CONTINUE TO MONITOR FOR ANY CHANGES AT THIS TIME.
--- NOTE | 2018-11-30 18:41 | NUR ---
Comfort Care: Pt appears to be resting comfortably. He does not appear to be in pain and anxiety is not evident. Reviewed with Nina, nursing. Discussed prolonged comfort care. Flakito, palliative nurse, had called ex yesterday, thinking that pt may be hanging on and waiting to say goodbye to family. Ativan has not been given. Recommend using small dose. He may be having racing thoughts or disturbing thoughts going on in his mind without a way of expressing it. Nina verbalizes understanding. She does not have any concerns at this time. Pt's toes are mottled, he is very pale. His eyes are jail open. He is breathing through his mouth.
--- NOTE | 2018-11-30 20:05 | NUR ---
PT RESTING COMFORTABLY, EYES OPEN, NON-VERBAL. NO S/S OF PAIN. RR 12 W/PERIODS OF APNEA. CALL LIGHT IN REACH, WILL CONTINUE TO MONITOR PT.
--- NOTE | 2018-12-01 06:24 | NUR ---
SHIFT SUMMARY PT ON COMFORT CARE. NON-RESPONSIVE, EYES OPEN, BITES DOWN WHEN SWAB PLACED IN MOUTH, SLIGHTLY MOVES R. FOOT OCCASIONALLY. NO S/S OF N/V. RR 12-14 W/40-50 SEC PERIODS OF APNEA. MEDICATED 1X W/5MG ROXANOL FOR COMFORT WHILE REPOSITIONING/TURNING. CALHOUN PATENT & DRAINING CLOUDY DARK TEA COLOR URINE, 100ML OUTPUT THIS SHIFT. WILL CONTINUE TO MONITOR.
--- NOTE | 2018-12-01 17:58 | NUR ---
SHIFT SUMMARY PATIENT STILL BREATHING, HEART IS BEATING. GETTING HARDER TO TELL WHEN THE PATIENT IS BREATHING AT THIS POINT, EVEN WITH A HAND ON HIS CHEST. HAVE BEEN CHECKING FOR A PULSE AND LISTENING FOR HEART BEATS TO BE SURE OF CERTAIN OR LIFE AT THIS TIME.
--- NOTE | 2018-12-01 21:43 | NUR ---
PT RESTING COMFORTABLY, TURNED & REPOSITIONED, ATTENDS CHANGED, DEBRA CARE PERFORMED. BALLET MASTER/MISTRESS PERFORMED ORAL CARE. NO S/S OF PAIN. PT STILL HAVING PERIODS OF APNEA W/RR 12. CALL LIGHT IN REACH & I WILL CONTINUE TO MONITOR.
--- NOTE | 2018-12-02 04:20 | NUR ---
SHIFT SUMMARY COMFORT CARE & NON-RESPONSIVE. RESTING COMFORTABLY T/O NIGHT. NO S/S OF PAIN, MEDICATED 1X W/5MG ROXANOL BEFORE TURNING & REPOSITIONING TO MAKE SURE PT COMFORTABLE. ORAL CARE PERFORMED MULTIPLE TIMES, PT BITES DOWN ON SWAB. RR 12 W/40-50 SEC PERIODS OF APNEA. SKIN COOL & VERY DRY, LOTION APPLIED. CALHOUN IN PLACE, NO URINE OUTPUT THIS SHIFT. TURNED & REPOSITIONED W/PILLOWS PRN. WILL CONTINUE TO MONITOR.
--- NOTE | 2018-12-02 17:41 | NUR ---
Comfort Care: Pt appear comfortable. No family at bedside. Reveiwed meds, chart, notes.
--- NOTE | 2018-12-02 17:43 | NUR ---
Comfort Care: Pt continues to be in actively dying phase. Appears comfortable. Spoke to Estrada, nurse. She does not have concerns at this time. Recommend giving small dose of ativan. Pt may be experiencing anxiety without being able to express. He has not had ativan. Estrada is medicating with roxanol as needed. Will remain available.
--- NOTE | 2018-12-02 17:55 | NUR ---
SUMMARY PT ON COMFORT CARE, SLOW RESPIRATIONS, NO VISITORS, MAINTAIN COMFORT
--- NOTE | 2018-12-03 04:02 | NUR ---
SHIFT SUMMARY NO ACUTE CHANGES THIS SHIFT. PT STILL UNRESPONSIVE, EYES OPEN & DRY- EYE DROPS GIVEN PER ORDERS. TURNED & REPOSITIONED PRN. LOTION APPLIED TO VERY DRY SKIN. CATH & ORAL CARE PERFORMED MULTIPLE TIMES, STILL BITES DOWN ON ORAL SWAB. RR 12 W/40-60 SEC PERIODS OF APNEA. MEDICATED FOR PAIN 3X W/5 MG ROXANOL PER ORDERS. CALHOUN SECURE W/VERY LITTLE URINE OUTPUT, EST 25ML TOTAL. WILL CONTINUE TO MONITOR PT.
--- NOTE | 2018-12-03 11:09 | NUR ---
COMFORT CARE ASSESSMENT DONE. CASE CONFERENCED WITH PT'S RN PRIOR TO VISIT. PT IN LEFT SIDELYING, NOTED APNIC SPELLS OF 20-50 SECONDS. ASSISTED RN IN REPOSITIONING PT AND NONVERBAL ANXIETY/DISCOMFORT NOTED WITH THIS. PT HAS SCANT DK BRN URINE IN CALHOUN DRAINAGE BAG. TIME SPENT GIVING PT A FOOD, HAND AND FOREHEAD RUB. WITH EACH OF THESE HE HAD PROLONGED APNIC SPELLS. REQUESTED MUSIC THERAPY, CASH PROCESSING SPECIALIST AND VOLUNTEER VISITS TODAY. PT APPEARS VERY NEAR BUT THIS HAS BEEN THE CASE FOR GREATER THAN 10-12 DAYS. WILL CONTINUE TO FOLLOW FOR COMFORT CARE ASSESSMENT AND SUPPORT.
--- NOTE | 2018-12-03 14:37 | NUR ---
Spiritual care visit conducted. Patient is having longer breaks inwhich he stops breathing and then starts back in again. I spent 30 minutes plus with patient, praying, reading scriptures and playing soft therapeutic guitar music. No change noted with patient. I will continue to remain available.
--- NOTE | 2018-12-03 18:05 | NUR ---
PT ROXANOL CHANGED TO SCHEDULED TO AID IN PT COMFORT
--- NOTE | 2018-12-03 18:43 | NUR ---
SHIFT SUMMARY- PT IS COMFORT CARE. HAS BEEN REPOSITIONED Q2 T/O THE SHIFT, MULTIPLE MEPILEX PLACED ON ZAYDA PROMANANCE TO PREVENT SKIN BREAKDOWN. PT NON RESPONSIVE, DOES NOT BLINK (EYE DROPS TO MAINTAIN EYE MOISTURE), CAL[place]N IN PLACE, HAS NOT HAD PO OR IV INTAKE SINCE THE PER REPORT. PT STILL BREATHING VERY SLOWLY WITH MULTIPLE LONG PAUSES LONGER THAN A MINUTE AT TIMES, PALLIATIVE CARE RN AWARE.
--- NOTE | 2018-12-03 22:00 | NUR ---
12/03/18 2200 PT RESTING COMFORTABLY. RESP AT 12. ORAL AND DEBRA-CARE GIVEN. REPOSITIONED BY TWO STAFF.
--- NOTE | 2018-12-04 04:14 | NUR ---
12/04/18 0410 RESP AT 10 AND SHALLOW. REPOSITIONED TO RT SIDE WITH HELP OF TWO STAFF. ORAL AND DEBRA-CARE GIVEN.
--- NOTE | 2018-12-04 06:38 | NUR ---
12/04/18 0600 STATUS UNCHANGED FROM PREVIOUS CHECK.
--- NOTE | 2018-12-04 08:30 | NUR ---
COMFORT CARE PAL CARE ASSESSMENT. Pt continues with mimimal shallow respirations, 3-4 per minute. Time spent holding pt's hand, massaging feet. Skin warm and dry. Pt unresponsive other than slight relaxation of neck muscles noted. Requested Cafeteria Operator visit spiritual care and for music therapy again. I am not noting the prolonged apnic episodes as markedly as yesterday. Trace < 20ml dk brn urine noted in urbina drainage bag. Pt does not appear to be restful, eyes and gaze fixed open. Neck hyperextended and taut again. Eye gtts and Roxanol being given per scheduled on eMAR. Orders per Dr for ativan to be used on scheduled basis due to nonverbal indicators of anxiety and distress. Case conferenced with pt's RN, second Pal Care RN,
--- NOTE | 2018-12-04 12:53 | NUR ---
Spiritual care visit conducted. I spent approx. 40 minutes in with patient. I spoke to patient about letting go and resting in God's care, I read scriptures (that spoke of heaven, the resurrection, the beauty of God's presence and the power of forgiveness) I provided prayer and I provided soft therapeutic guitar music. It could be the meds or just my perception but patient looks more peaceful today than yesterday. I continue to remain available.
--- NOTE | 2018-12-04 17:49 | NUR ---
PT IS NON RESPONSIVE AND DOES NOT MOVE OR BLINK AT THIS TIME. PT WILL HAVE LONG PAUSES BETWEEN BREATHING, BUT SEEMS TO CONTINUE ON. PT IS UNABLE TO EXPRESS ANY PAIN OR ANXIETY AND IS TREATED PER EMAR. PT TURNED Q2 AND WILL CONTINUE TO BE MONITORED.
--- NOTE | 2018-12-05 02:04 | NUR ---
12/05/18 0200 RESTING COMFORTABLY. RESP AT 7 AND IRREGULAR. ORAL CARE GIVEN.
--- NOTE | 2018-12-05 06:08 | NUR ---
12/05/18 0600 REPOSITIONED FOR COMFORT. NON-VERBAL. MEDICATED REGULARLY FOR PAIN AND ANXIETY PER MAR. PERIODS OF APNEA NOTED THROUGHOUT SHIFT. GOOD ORAL AND DEBRA-CARE GIVEN. MOUTH BREATHES AND MOUTH FREQUENTLY DRY.
--- NOTE | 2018-12-05 07:40 | NUR ---
PT NONRESPONSIVE, EYES OPEN. NO S/S PAIN. BREATHS NONLABORED WITH OCC PAUSES, APNEAS. PULSES WEAK, EXTREMITIES COOL. NO FAMILY PRESENT. PALLIATIVE CARE RN IN TO SEE HIM.
--- NOTE | 2018-12-05 08:15 | NUR ---
PT remains catatonic appearing with same prolonged apnic episodes lasting close to one minute at times. No urine in urbina drainage bag. Skin cooler and severe tenting, dry leather like texture. Top of head and extremities cool. They were warm yesterday. Case conferenced with RN and will remain available as needed.
--- NOTE | 2018-12-05 10:39 | NUR ---
TECHNICAL SPECIALIST CYTOGENETICS PROVIDE COMPLETE BEDBATH, ORAL CARE. PT REPOSITIONED FOR COMFORT. HE CONTINUES NONRESPONSIVE W EYES OPEN. NO S/S OF PAIN, RESP UNLABORED.
--- NOTE | 2018-12-05 12:50 | NUR ---
PT S/O TRINH CALL TO CHECK STATUS, PROVIDED UPDATE, PROVIDED REASSURANCE. NO CHANGE IN PT, CONTINUES NONRESPONSIVE, BREATHING UNLABORED WITH OCCASIONAL APNEAS.
--- NOTE | 2018-12-05 14:55 | NUR ---
Spiritual care visit conducted. I prayed for patient, read Psalm 23, 16 and 139 and prayed the Lord's Prayer. I played soft spiritual therapeutic guitar music and while I was playing patient took a long pause in breathing. I got up and put my hand on patient's chest and said another prayer and patient did not take another breath. 1420 seemed to be time of . I called patient's RN and he responded quickly and confirmed that patient had .
--- NOTE | 2018-12-05 15:11 | NUR ---
PASTORAL CARE IN TO SEE PT, PROVIDE SOFT GUITAR MUSIC. DURING VISIT PT QUIETLY PASS AWAY. AMMONIUM NITRATE CRYSTALLIZER NOTIFIED. PALLIATIVE CARE RN NOTIFY DR REED. ATTEMPTED CALL TO S/O HOWEVER NO ANSWER. CALLED S/O SISTER TO PROVIDE FAMILY NOTIFICATION, STATE SHE CONTACT [facility] FAMILY MEMBERS.
== END 2018-12-05 14:40 ==
LOC: ER 14:32 → MEDS 14:33
PROVIDERS: Emergency Medicine; ADMIT Internal Medicine
DX: E16.2 Hypoglycemia, unspecified (principal); G93.41 Metabolic encephalopathy; E27.40 Unspecified adrenocortical insufficiency; F10.10 Alcohol abuse, uncomplicated; Z51.5 Encounter for palliative care; F17.200 Nicotine dependence, unspecified, uncomplicated; Y90.0 Blood alcohol level of less than 20 mg/100 ml; Z88.0 Allergy status to penicillin; Z88.8 Allergy status to other drugs, medicaments and biological substances; Z79.899 Other long term (current) drug therapy
CPT/HCPCS: 36415; 80053; 82947; 85025; 96361; 96365; 96375; 99285-25; G0378; G0480; J2060; J3411; J7030